=== PATIENT | male | born 1965 | race Caucasian/White ===

== ENCOUNTER → 2018-02-23 | Outpatient (CLI) | payer BC ==
--- NOTE | 2018-02-23 16:50 | US ---
EXAMINATION TYPE: US venous doppler duplex LE RT DATE OF EXAM: 02/23/2018 4:38 PM COMPARISON: NONE CLINICAL HISTORY: R leg swelling R22.41. Right leg swelling x 9 days, fever SIDE PERFORMED: Right TECHNIQUE: The lower extremity deep venous system is examined utilizing real time linear array sonog surjit with graded compression, doppler sonography and color-flow sonography. VESSELS IMAGED: Common Femoral Vein Deep Femoral Vein Greater Saphenous Vein * Femoral Vein Popliteal Vein Small Saphenous Vein * Proximal Calf Veins (* superficial vessels) Right Leg: Is positive for nonoccluding DVT at Distal CFV and is positive for occluding DVT at Right Femoral Vein, Popliteal Vein. and upper and mid calf veins; is positive for Superficial Vein Thrombo sis in upper Small Saphenous Vein IMPRESSION: There is evidence of acute and chronic deep venous thrombosis in the right leg. There is also superficial vein thrombosis in the short saphenous vein.
== END | disposition home or self-care (01) ==
LOC: RADUSWWP 15:42
PROVIDERS: ATTEND Family Medicine
DX: I82.401 Acute embolism and thrombosis of unspecified deep veins of right lower extremity (principal); I82.91 Chronic embolism and thrombosis of unspecified vein; I82.811 Embolism and thrombosis of superficial veins of right lower extremity

== ENCOUNTER → 2018-02-27 | Outpatient (CLI) | payer BC ==
[2018-02-27 12:45] LABS: HCT 41.7 % (39.0-53.0); HGB 13.5 gm/dL (13.0-17.5); MCH 27.7 pg (25.0-35.0); MCHC 32.2 g/dL (31.0-37.0); Mean Platelet Volume 6.9; Platelet Count 333 k/uL (150-450); RBC 4.85 m/uL (4.30-5.90); RDW 12.8 % (11.5-15.5); WBC 7.1 k/uL (3.8-10.6)
[2018-02-27 17:26] LABS: Albumin 4.6 g/dL (3.80-4.90); Albumin/Globulin Ratio 2.3 (1.20-2.10); Anion Gap 7.6 mmol/L (4.00-12.00); Calcium 9.5 mg/dL (8.7-10.3); Carbon Dioxide 28.4 mmol/L (21.6-31.8); Potassium 4.2 mmol/L (3.5-5.5); Total Bilirubin 0.3 mg/dL (0.3-1.2); Total Protein 6.6 g/dL (6.2-8.2)
[2018-02-27 17:32] LABS: Folate, Serum 5.8 ng/mL
[2018-02-27 18:23] LABS: Cardiolipin Ab IgG Interp NEGATIVE (NEGATIVE); Cardiolipin Ab IgM Interp NEGATIVE (NEGATIVE); Cardiolipin IgA Antibody <0.5 U/mL; Cardiolipin IgM Antibody 0.2 U/mL
[2018-02-27 19:41] LABS: Hemoglobin A1C 6.4 % (4.0-6.0)
[2018-03-03 11:03] LABS: Anti-Thrombin III Activity 134 % (79-109); Protein C (Activity) 77 % (71-138)
== END | disposition home or self-care (01) ==
LOC: LABWHC1 11:46
PROVIDERS: ATTEND Family Medicine
DX: C61 Malignant neoplasm of prostate (principal); I82.409 Acute embolism and thrombosis of unspecified deep veins of unspecified lower extremity; I10 Essential (primary) hypertension; E11.9 Type 2 diabetes mellitus without complications
CPT/HCPCS: 36415; 80053; 80061; 82607; 82746; 83036; 83090; 84153; 84443; 85027; 85300; 85303; 85306; 86147

== ENCOUNTER → 2018-07-09 | Outpatient (CLI) | payer BC ==
--- NOTE | 2018-07-09 15:56 | CT ---
EXAMINATION TYPE: CT abdomen pelvis wo con DATE OF EXAM: 07/09/2018 COMPARISON: None HISTORY: 53-year-old male Hematuria and kidney stones. CT DLP: 950.3 mGycm. Automated exposure control for dose reduction was used. TECHNIQUE: Contiguous axial scanning of the abdomen and pelvis without IV contrast. Coronal and sagit satnam reconstructions performed. FINDINGS: Heart normal size without pericardial effusion. Lung bases clear without pleural effusion. Liver upper limits of normal in size at 17.4 cm with diffuse low-attenuation. Noncontrast appearance of the gallbladder, adrenal glands, spleen, and pancreas show no gross anomaly . 3.4 cm probable cyst lateral right kidney. A couple scattered subcentimeter hypodensities in both kid neys inadequately characterize, probable cysts. There is a 1.5 cm probable lateral left renal cyst. No renal calculi or hydronephrosis. No dilated small bowel, free fluid, or free air. No mesenteric or retroperitoneal lymphadenopathy. Scattered mild stool. Occasional diverticular change in the lower descending and proximal sigmoid col on. No pericolic inflammatory change. Mild circumferential bladder wall thickening may relate to incomplete distention. Prostate gland kevan ures 4.6 cm wide. Patulous left inguinal canal. No abnormal fluid collection in the pelvis or pelvic lymphadenopathy. Bones: Mild degenerative changes at the hips. Osteitis pubis. Mild degenerative change at the SI join ts. Facet arthropathy mid to lower lumbar spine. IMPRESSION: 1. No renal calculi or hydronephrosis seen. 2. Bilateral renal lesions, the largest measuring 3.4 cm on the right and 1.5 cm on the left almost certainly represent cysts. A couple additional scattered subcentimeter hypodensities are inadequately characterized but also likely represent cysts. 3. Borderline hepatomegaly (17.4 cm) with at least moderate hepatic steatosis. 4. Mild colonic diverticulosis lower descending/proximal sigmoid colon. 5. Circumferential bladder wall thickening may relate to incomplete distention, chronic bladder wall hypertrophy, or cystitis.
== END | disposition home or self-care (01) ==
LOC: RADCTMAIN 13:15
PROVIDERS: ATTEND Urology
DX: N28.89 Other specified disorders of kidney and ureter (principal); K76.0 Fatty (change of) liver, not elsewhere classified; K57.30 Diverticulosis of large intestine without perforation or abscess without bleeding; N32.89 Other specified disorders of bladder; R31.9 Hematuria, unspecified
CPT/HCPCS: 74176

== ENCOUNTER → 2019-02-26 | Outpatient (CLI) | payer BC ==
--- NOTE | 2019-02-26 14:37 | US ---
EXAMINATION TYPE: US venous doppler duplex LE DATE OF EXAM: 02/26/2019 2:20 PM COMPARISON: US right leg only 02/23/2018 CLINICAL HISTORY: Pain angelita legs M79.662, M79.661, R06.02. Swelling bilateral legs, previous DVT right leg, pt currently on blood thinners SIDE PERFORMED: Bilateral TECHNIQUE: The lower extremity deep venous system is examined utilizing real time linear array sonog surjit with graded compression, doppler sonography and color-flow sonography. VESSELS IMAGED: External Iliac Vein (EIV) Common Femoral Vein Deep Femoral Vein Greater Saphenous Vein * Femoral Vein Popliteal Vein Small Saphenous Vein * Proximal Calf Veins (* superficial vessels) Right Leg: Negative for acute DVT, chronic appearing thrombus beginning at proximal femoral vein, du plicate mid femoral vein, partial blood flow and compression beginning at mid femoral vein to distal popliteal vein Left Leg: Negative for DVT IMPRESSION: Findings suggest sequela from prior DVT on the right. No definite acute deep venous thr ombosis identified.
--- NOTE | 2019-02-26 15:01 | CT ---
EXAMINATION TYPE: CT angio chest DATE OF EXAM: 02/26/2019 COMPARISON: NONE HISTORY: SOB, bilateral leg pain, hx of DVT CT DLP: 465.2 mGycm. Automated Exposure Control for Dose Reduction was Utilized. CONTRAST: CTA scan of the thorax is performed with IV Contrast, patient injected with 66cc mL of Isovue 370, pu lmonary embolism protocol. MIP Images are created on CT scanner and reviewed. FINDINGS: LUNGS: Minimal bibasilar subsegmental dependent atelectasis. The lungs are grossly clear, there is no concerning parenchymal mass or nodule identified. There is no pleural effusion or pneumothorax see n. The tracheobronchial tree is patent. Mild right hemidiaphragm elevation is likely on the basis of hepatomegaly. MEDIASTINUM: There is suboptimal enhancement of the pulmonary artery and its branches, there is no ce ntral pulmonary embolus. Segmental and subsegmental branches are nondiagnostic. There are no greater than 1 cm hilar or mediastinal lymph nodes. No cardiomegaly or pericardial effusion is seen. Very f ew subtle few coronary calcifications. OTHER: Partially visualized right renal cystic lesion measures 2.5 cm. Hepatic steatosis is seen limi ting evaluation for hepatic masses. Mild multilevel degenerative disc disease of the spine. IMPRESSION: 1. No evidence of central pulmonary embolus. Suboptimal bolus timing and therefore evaluation of the segmental and subsegmental pulmonary arteries are nondiagnostic. 2. No focal consolidation, pleural effusion or pneumothorax and the lungs.
== END ==
LOC: RADCTMAIN 13:29
PROVIDERS: ATTEND Family Medicine
DX: M79.662 Pain in left lower leg (principal); M79.661 Pain in right lower leg; R06.02 Shortness of breath; Z01.812 Encounter for preprocedural laboratory examination; Z86.718 Personal history of other venous thrombosis and embolism
CPT/HCPCS: 82565; 84520; 93970; 71275; 36415; Q9967

== ENCOUNTER 2024-02-06 16:30 | Emergency (ER) | payer BC ==
--- NOTE | 2024-02-06 17:12 | ED ---
Abdominal Pain HPI - General Chief Complaint: Abdominal Pain Stated Complaint: back pain, nausea Time Seen by Provider: 02/06/24 16:50 Source: patient (\), RN notes reviewed Mode of arrival: ambulatory Limitations: no limitations - History of Present Illness Initial Comments: 58-year-old male with history of kidney stones presenting to the ER with chief complaint of left flank pain x 1 day. States around 4 AM this morning he woke up with a pain in his left flank. Describes the pain as sharp and intermittent. Pain does not radiate. Admits associated nausea. Also reports an episode of diarrhea today. Denies abdominal pain, fevers, chills, urinary symptoms, hematuria. Denies trauma or injury. He does have a history of DVT but has not taken his Eliquis in several months due to the cost. Other past medical history includes hypertension and prediabetes. - Related Data Previous Rx's Medication Instructions Recorded Cephalexin [Keflex] 500 mg PO Q12HR 7 Days #14 cap 02/06/24 Ketorolac [Toradol] 10 mg PO Q8HR #15 tab 02/06/24 Tamsulosin [Flomax] 0.4 mg PO DAILY #7 cap 02/06/24 Allergies Allergy/AdvReac Type Severity Reaction Status Date / Time lactose AdvReac Diarrhea Verified 02/06/24 16:37 onion AdvReac Diarrhea Verified 02/06/24 16:37 Review of Systems ROS Statement: Those systems with pertinent positive or pertinent negative responses have been documented in the HPI. ROS Other: All systems not noted in ROS Statement are negative. Past Medical History Past Medical History: Deep Vein Thrombosis (DVT) Additional Past Medical History / Comment(s): kidney stones, left leg DVT on Eliquis, History of Any Multi-Drug Resistant Organisms: None Reported Past Surgical History: Orthopedic Surgery Additional Past Surgical History / Comment(s): left shoulder surgery, Past Psychological History: No Psychological Hx Reported Smoking Status: Former smoker Past Alcohol Use History: Rare Past Drug Use History: None Reported General Exam Limitations: no limitations General appearance: alert, in no apparent distress Head exam: Present: atraumatic, normocephalic, normal inspection Eye exam: Present: normal appearance, PERRL, EOMI. Absent: scleral icterus, conjunctival injection, periorbital swelling ENT exam: Present: normal exam, mucous membranes moist Respiratory exam: Present: normal lung sounds bilaterally. Absent: respiratory distress, wheezes, rales, rhonchi, stridor Cardiovascular Exam: Present: regular rate, normal rhythm, normal heart sounds. Absent: systolic murmur, diastolic murmur, rubs, gallop, clicks GI/Abdominal exam: Present: soft, normal bowel sounds. Absent: distended, tenderness, guarding, rebound, rigid Back exam: Absent: CVA tenderness (R), CVA tenderness (L) Neurological exam: Present: alert, oriented X3 Psychiatric exam: Present: normal affect, normal mood Skin exam: Present: warm, dry, intact, normal color. Absent: rash Course Vital Signs 02/06/24 02/06/24 16:32 20:18 Temperature 97.7 F 97.9 F Pulse Rate 80 71 Respiratory 18 17 Rate Blood Pressure 137/91 126/79 O2 Sat by Pulse 98 97 Oximetry Medical Decision Making - Medical Decision Making Was pt. sent in by a medical professional or institution (, PA, [facility] [employer], urgent care, hospital, or [facility]...) When possible be specific @ -No Did you speak to anyone other than the patient for history (EMS, parent, family, police, friend...)? What history was obtained from this source @ -No Did you review nursing and triage notes (agree or disagree)? Why? @ -I reviewed and agree with nursing and triage notes Were old charts reviewed (outside hosp., previous admission, EMS record, old EKG, old radiological studies, urgent care reports/EKG's, [facility] records)? Report findings @ -No old charts were reviewed Differential Diagnosis (chest pain, altered mental status, abdominal pain women, abdominal pain men, vaginal bleeding, weakness, fever, dyspnea, syncope, headache, dizziness, GI bleed, back pain, seizure, CVA, palpatations, mental health, musculoskeletal)? @ -Differential Abdominal Pain Men: Appendicitis, cholecystitis, diverticulosis, ischemic bowel, pancreatitis, hepatitis, UTI, gastroenteritis, AAA, incarcerated hernia, bowel obstruction, constipation, inflammatory bowel, hepatitis, peptic ulcer disease, splenic infarction, perforated viscus, testicular torsion, this is not meant to be an all-inclusive list EKG interpreted by me (3pts min.). @ -None X-rays interpreted by me (1pt min.). @ -None done CT interpreted by me (1pt min.). @ -CT abdomen pelvis revealed mild left hydronephrosis with obstructing 5 mm calculus at ureterovesicular junction. Fat stranding changes around kidney U/S interpreted by me (1pt. min.). @ -None done What testing was considered but not performed or refused? (CT, X-rays, U/S, labs)? Why? @ -None What meds were considered but not given or refused? Why? @ -None Did you discuss the management of the patient with other professionals (saadia stewart i.e. , PA, [employer], lab, RT, psych nurse, social secretary, action installer, teacher, commissary officer, case hardener)? Give summary @ -I spoke with Dr. Arreola who recommends discharge with antibiotics and close outpatient follow up Was smoking cessation discussed for >3mins.? @ -No Was critical care preformed (if so, how long)? @ -No Were there social determinants of health that impacted care today? How? ( Homelessness, low income, unemployed, alcoholism, drug addiction, transportation, low edu. Level, literacy, decrease access to med. care, skilled nursing, rehab)? @ -No Was there de-escalation of care discussed even if they declined (Discuss DNR or withdrawal of care, Hospice)? DNR status @ -No What co-morbidities impacted this encounter? (DM, HTN, Smoking, COPD, CAD, Cancer, CVA, ARF, Chemo, Hep., AIDS, mental health diagnosis, sleep apnea, morbid obesity)? @ -None Was patient admitted / discharged? Hospital course, mention meds given and route, prescriptions, significant lab abnormalities, going to OR and other pertinent info. @ -Discharged. This is a 58-year-old male presenting to the ER with left flank pain x 1 day. Denies fevers, vomiting. Vital signs are within acceptable limits. Patient is afebrile, nontachycardic. Abdomen is soft and nontender. No CVA tenderness. Patient was provided with IV fluids, analgesics. Laboratory studies including CBC, CMP, lactic acid remarkable for white blood cell count of 16 and lactic acid 2.4. CT abdomen pelvis reveals left hydronephrosis with obstructing 5 mm stone at ureterovesicular junction with fat stranding changes around kidney. Upon reevaluation, patient states symptoms have improved. I spoke with Dr. Arreola who recommends discharge with antibiotics and close outpatient follow-up. Patient is agreeable to this plan. Advised close follow- up with urology on Friday. Patient was given 1 g Rocephin and discharged with Keflex, Toradol, Flomax, and Zofran. Case was discussed with my ED attending Dr. Oconnor. Undiagnosed new problem with uncertain prognosis? @ -No Drug Therapy requiring intensive monitoring for toxicity (Heparin, Nitro, Insulin, Cardizem)? @ -No Were any procedures done? @ -No Diagnosis/symptom? @ -Left nephrolithiasis Acute, or Chronic, or Acute on Chronic? @ -Acute Uncomplicated (without systemic symptoms) or Complicated (systemic symptoms)? @ -Uncomplicated Side effects of treatment? @ -No Exacerbation, Progression, or Severe Exacerbation? @ -No Poses a threat to life or bodily function? How? (Chest pain, [place], [place], pneumonia, PE, COPD, DKA, ARF, appy, cholecystitis, CVA, Diverticulitis, Homicidal, Suici eli, threat to staff... and all critical care pts) @ -Not at this time - Lab Data Result diagrams: 02/06/24 17:09 02/06/24 17:09 Lab Results 02/06/24 02/06/24 02/06/24 Range/Units 17:09 17:09 17:09 WBC 16.6 H (3.8-10.6) k/uL RBC 5.28 (4.30-5.90) m/uL Hgb 14.8 (13.0-17.5) gm/dL Hct 45.9 (39.0-53.0) % MCV 86.9 (80.0-100.0) fL MCH 28.1 (25.0-35.0) pg MCHC 32.3 (31.0-37.0) g/dL RDW 13.2 (11.5-15.5) % Plt Count 196 (150-450) k/uL MPV 8.0 Neutrophils % 92 % Lymphocytes % 4 % Monocytes % 3 % Eosinophils % 0 % Basophils % 0 % Neutrophils # 15.3 H (1.3-7.7) k/uL Lymphocytes # 0.7 L (1.0-4.8) k/uL Monocytes # 0.6 (0-1.0) k/uL Eosinophils # 0.0 (0-0.7) k/uL Basophils # 0.0 (0-0.2) k/uL Sodium 139 (137-145) mmol/L Potassium 4.7 (3.5-5.1) mmol/L Chloride 106 (98-107) mmol/L Carbon Dioxide 22 (22-30) mmol/L Anion Gap 11 mmol/L BUN 25 H (9-20) mg/dL Creatinine 1.76 H (0.66-1.25) mg/dL Est GFR (CKD-EPI)AfAm 48 (>60 ml/min/1.73 sqM) Est GFR (CKD-EPI)NonAf 42 (>60 ml/min/1.73 sqM) Glucose 196 H (74-99) mg/dL Lactic Ac Sepsis Rflx Plasma Lactic Acid Cy 2.4 H* (0.7-2.0) mmol/L Calcium 9.2 (8.4-10.2) mg/dL Total Bilirubin 0.7 (0.2-1.3) mg/dL AST 19 (17-59) U/L ALT 19 (4-49) U/L Alkaline Phosphatase 61 (38-126) U/L Total Protein 7.3 (6.3-8.2) g/dL Albumin 4.6 (3.5-5.0) g/dL Urine Color Urine Appearance (Clear) Urine pH (5.0-8.0) Ur Specific [place] (1.001-1.035) Urine Protein (Negative) Urine Glucose (UA) (Negative) Urine Ketones (Negative) Urine Blood (Negative) Urine Nitrite (Negative) Urine Bilirubin (Negative) Urine Urobilinogen (<2.0) mg/dL Ur Leukocyte Esterase (Negative) Urine RBC (0-5) /hpf Urine WBC (0-5) /hpf Calcium Oxalate Crystal (None) /hpf Urine Mucus (None) /hpf 02/06/24 02/06/24 Range/Units 18:38 19:12 WBC (3.8-10.6) k/uL RBC (4.30-5.90) m/uL Hgb (13.0-17.5) gm/dL Hct (39.0-53.0) % MCV (80.0-100.0) fL MCH (25.0-35.0) pg MCHC (31.0-37.0) g/dL RDW (11.5-15.5) % Plt Count (150-450) k/uL MPV Neutrophils % % Lymphocytes % % Monocytes % % Eosinophils % % Basophils % % Neutrophils # (1.3-7.7) k/uL Lymphocytes # (1.0-4.8) k/uL Monocytes # (0-1.0) k/uL Eosinophils # (0-0.7) k/uL Basophils # (0-0.2) k/uL Sodium (137-145) mmol/L Potassium (3.5-5.1) mmol/L Chloride (98-107) mmol/L Carbon Dioxide (22-30) mmol/L Anion Gap mmol/L BUN (9-20) mg/dL Creatinine (0.66-1.25) mg/dL Est GFR (CKD-EPI)AfAm (>60 ml/min/1.73 sqM) Est GFR (CKD-EPI)NonAf (>60 ml/min/1.73 sqM) Glucose (74-99) mg/dL Lactic Ac Sepsis Rflx Y Plasma Lactic Acid Cy (0.7-2.0) mmol/L Calcium (8.4-10.2) mg/dL Total Bilirubin (0.2-1.3) mg/dL AST (17-59) U/L ALT (4-49) U/L Alkaline Phosphatase (38-126) U/L Total Protein (6.3-8.2) g/dL Albumin (3.5-5.0) g/dL Urine Color Light Yellow Urine Appearance Cloudy (Clear) Urine pH 5.5 (5.0-8.0) Ur Specific [place] 1.023 (1.001-1.035) Urine Protein Negative (Negative) Urine Glucose (UA) 4+ H (Negative) Urine Ketones Negative (Negative) Urine Blood Moderate H (Negative) Urine Nitrite Negative (Negative) Urine Bilirubin Negative (Negative) Urine Urobilinogen <2.0 (<2.0) mg/dL Ur Leukocyte Esterase Negative (Negative) Urine RBC 20 H (0-5) /hpf Urine WBC 4 (0-5) /hpf Calcium Oxalate Crystal Occasional H (None) /hpf Urine Mucus Occasional H (None) /hpf Disposition Clinical Impression: Left nephrolithiasis Disposition: HOME SELF-CARE Condition: Stable Instructions (If sedation given, give patient instructions): Kidney Stones (ED) Additional Instructions: Follow-up with Dr. Arreola on Friday. Take Keflex twice daily for 7 days. Take Toradol as needed for pain, and Zofran as needed for nausea. Please return to the Emergency Department if symptoms worsen or any other concerns. Prescriptions: Tamsulosin [Flomax] 0.4 mg PO DAILY #7 cap Cephalexin [Keflex] 500 mg PO Q12HR 7 Days #14 cap Ketorolac [Toradol] 10 mg PO Q8HR #15 tab Is patient prescribed a controlled substance at d/c from ED?: No Referrals: Jewell Nassar MD [Primary Care Provider] - 1-2 days Benny Arreola MD [STAFF PHYSICIAN] - 1-2 days Time of Disposition: 20:05
[2024-02-06] MEDS: SODIUM CHLORIDE 0.9% 1,000 ML IV STA (17:42)
[2024-02-06] MEDS: KETOROLAC 15 MG/ML 1 ML VIAL IVP STA ×2 (17:45→20:11)
[2024-02-06 18:16] LABS: Basophils % (A) 0 %; Eosinophils % (A) 0 %; HCT 45.9 % (39.0-53.0); HGB 14.8 gm/dL (13.0-17.5); Lymphocytes # (A) 0.7 k/uL (1.0-4.8); Lymphocytes % (A) 4 %; MCH 28.1 pg (25.0-35.0); MCHC 32.3 g/dL (31.0-37.0); MCV 86.9 fL (80.0-100.0); Monocytes # (A) 0.6 k/uL (0-1.0); Monocytes % (A) 3 %; Neutrophils # (A) 15.3 k/uL (1.3-7.7); Neutrophils % (A) 92 %; Platelet Count 196 k/uL (150-450); RBC 5.28 m/uL (4.30-5.90); RDW 13.2 % (11.5-15.5); WBC 16.6 k/uL (3.8-10.6)
[2024-02-06 18:36] LABS: ALT 19 U/L (4-49); AST 19 U/L (17-59); African American GFR (CKD) 48 (>60 ml/min/1.73 sqM); Albumin 4.6 g/dL (3.5-5.0); Alkaline Phosphatase 61 U/L (38-126); Anion Gap 11 mmol/L; Blood Urea Nitrogen 25 mg/dL (9-20); Calcium 9.2 mg/dL (8.4-10.2); Carbon Dioxide 22 mmol/L (22-30); Chloride 106 mmol/L (98-107); Glucose 196 mg/dL (74-99); Non-African American GFR(CKD) 42 (>60 ml/min/1.73 sqM); Potassium 4.7 mmol/L (3.5-5.1); Sodium 139 mmol/L (137-145); Total Bilirubin 0.7 mg/dL (0.2-1.3); Total Protein 7.3 g/dL (6.3-8.2)
--- NOTE | 2024-02-06 19:07 | CT ---
EXAMINATION TYPE: CT abdomen pelvis wo con DATE OF EXAM: 02/06/2024 6:42 PM COMPARISON: 07/09/2018 CLINICAL INDICATION: Male, 58 years old with history of right flank pain, kidney stone suspected; TECHNIQUE: Axial CT abdomen pelvis wo con;Sagittal and coronal reformats were created on a separate workstation. Contrast used: mL of , (none if empty) Oral contrast used: (none if empty) CT DLP: mGycm, Automated exposure control for dose reduction was used. FINDINGS: LOWER CHEST: Unremarkable ABDOMEN LIVER: Unremarkable GALLBLADDER AND BILE DUCTS: Unremarkable. PANCREAS: Unremarkable. SPLEEN: Unremarkable. ADRENAL GLANDS: Unremarkable. KIDNEYS AND URETERS: Mild left hydronephrosis with obstructing 5 mm calculus at the ureterovesicular junction. Fat stranding changes around the left kidney. Scattered bilateral renal probable cyst. PELVIS BLADDER: No evidence for wall thickening or mass given limitations of exam. REPRODUCTIVE: Prostate is enlarged in size measuring 4.9 cm in transverse dimension. ABDOMEN & PELVIS STOMACH AND BOWEL: No evidence of bowel obstruction. Scattered colonic diverticula are present. The a ppendix is normal. PERITONEUM/RETROPERITONEUM: No evidence of pneumoperitoneum or free fluid. VASCULATURE: No evidence of aortic aneurysm. MUSCULOSKELETAL: No acute osseous abnormalities LYMPH NODES: No gross evidence for lymphadenopathy. SOFT TISSUE/ABDOMINAL WALL: Bilateral fat-containing inguinal hernias. IMPRESSION: 1. Mild left hydronephrosis with obstructing 5 mm calculus at the ureterovesicular junction. Fat str anding changes around the left kidney. Correlate for ascending infection. No right renal calculus or obstructive uropathy on the right. 2. Colonic diverticulosis. 3. Prostatomegaly, correlate with serum PSA. [facility], , 02/06/2024 7:05 PM
[2024-02-06 19:19] LABS: Appearance,Urine Cloudy (Clear); Bilirubin,Urine Negative (Negative); Blood,Urine Moderate (Negative); Calcium Oxalate Crystals,Urine Occasional /hpf; Color,Urine Light Yellow; Glucose,Urine (UA) 4+ (Negative); Ketones,Urine Negative (Negative); Leukocyte Esterase,Urine Negative (Negative); Mucus,Urine Occasional /hpf; Nitrite,Urine Negative (Negative); PH, Urine 5.5 (5.0-8.0); Protein,Urine Negative (Negative); RBC,Urine 20 /hpf (0-5); Specific Gravity,Urine 1.023 (1.001-1.035); Urobilinogen,Urine <2.0 mg/dL (<2.0); WBC,Urine 4 /hpf (0-5)
[2024-02-06] MEDS: cefTRIAXone IN SWFI 1,000 MG/10 ML SYRINGE IVP STA (20:12)
[2024-02-06] MEDS: ONDANSETRON 4 MG ODT STARTER PACK 2 TAB BTL PO STA (20:12)
[2024-02-06 20:23] VITALS: BP 126/79; PULSE 71; RESP 17; TEMP 97.9
== END 2024-02-06 20:28 | disposition home or self-care (01) ==
LOC: EC 16:30
DX: K57.30 Diverticulosis of large intestine without perforation or abscess without bleeding (principal); N13.2 Hydronephrosis with renal and ureteral calculous obstruction; Z87.891 Personal history of nicotine dependence; Z91.018 Allergy to other foods
CPT/HCPCS: 36415; 80053; 83605; 85025; 81001; 74176; 99284; 96374; 96375; 96376; 96361 ×2; J0696; J1885; S0119

== ENCOUNTER → 2024-02-18 | Outpatient (CLI) | payer BC ==
--- NOTE | 2024-02-18 12:29 | XR ---
EXAMINATION TYPE: XR KUB DATE OF EXAM: 02/18/2024 12:15 PM COMPARISON: None. CLINICAL INDICATION: Male, 58 years old with history of N20.1 CALCULUS OF URETER; TECHNIQUE: One radiographic view of the abdomen was obtained. FINDINGS: The bowel gas pattern is nonspecific without dilated loops of small or large bowel. . Fecal material and gas are demonstrated throughout the colon and rectum. There is no evidence for organomegaly or pneumoperitoneum. The osseous structures are intact. No ab normal calcifications are present. IMPRESSION: Nonspecific bowel gas pattern without radiographic evidence for acute process. [facility], , 02/18/2024 12:27 PM
== END | disposition home or self-care (01) ==
LOC: RADXRMAIN 11:51
PROVIDERS: ATTEND Urology
DX: N20.1 Calculus of ureter (principal)
CPT/HCPCS: 74018

== ENCOUNTER → 2024-03-09 | Outpatient (CLI) | payer BC ==
--- NOTE | 2024-03-09 09:18 | XR ---
EXAMINATION TYPE: XR KUB DATE OF EXAM: 03/09/2024 8:29 AM COMPARISON: CT 1 02/06/2024 CLINICAL INDICATION: Male, 58 years old with history of N20.0 CALCULUS OF KIDNEY; [facility] TECHNIQUE: One radiographic view of the abdomen was obtained. FINDINGS: There is a small stool burden, otherwise, the bowel gas pattern is nonspecific without dila jaydon loops of small or large bowel. . Fecal material and gas are demonstrated throughout the colon and rectum. There is no evidence for organomegaly or pneumoperitoneum. The osseous structures are intact. No ab normal calcifications are present. Calculus in the urinary bladder near the left ureterovesicular angelina ction not definitively visualized. IMPRESSION: Calculus in the bladder not definitively visualized. Nonspecific bowel gas pattern without radiographic evidence for acute process. [facility], , 03/09/2024 9:16 AM
== END | disposition home or self-care (01) ==
LOC: RADXRMAIN 08:11
PROVIDERS: ATTEND Urology
DX: N20.0 Calculus of kidney (principal); N21.0 Calculus in bladder
CPT/HCPCS: 74018

== ENCOUNTER → 2024-10-19 | Outpatient (CLI) | payer BC ==
--- NOTE | 2024-10-19 14:37 | US ---
EXAMINATION TYPE: US scrotum with doppler. DATE OF EXAM: 10/19/2024 COMPARISON: NONE CLINICAL INDICATION: Male, 59 years old with history of N50.82 SCROTAL PAIN; Bilateral groin pain sin ce trip to [place] about one month ago. TECHNIQUE: Grayscale, color Doppler and spectral Doppler imaging of the scrotum. FINDINGS: EXAM MEASUREMENTS: TESTICLES: Right Testicle: 3.8 x 1.9 x 3.5 cm Left Testicle: 4.0 x 2.2 x 3.6 cm EPIDIDYMIS HEAD: Right Epididymis: 0.8 x 1.3 x 1.5 cm Left Epididymis: 1.5 x 0.4 x 1.8 cm Doppler performed to assess for testicular vascularity; good bilateral color flow and spectral wavefo tay are seen. There is no evidence of testicular torsion. Presence of hydroceles: No Presence of varicoceles: Yes Cyst seen adjacent to left epididymal head = 1.8 x 1.0 x 2.3 cm IMPRESSION: 1. No evidence for acute process. 2. Left epididymal cyst 3. No evidence for intratesticular mass. 4. Appropriate arterial and venous spectral waveforms to the testes. 5. Left varicocele [facility], , 10/19/2024 2:35 PM
== END | disposition home or self-care (01) ==
LOC: RADUSWWP 14:04
PROVIDERS: ATTEND Emergency Medicine
DX: N50.3 Cyst of epididymis (principal); I86.1 Scrotal varices
CPT/HCPCS: 76870; 93975

== ENCOUNTER → 2024-10-21 | Outpatient (CLI) | payer BC ==
[2024-10-21 15:13] LABS: Basophils # (A) 0.08 X 10*3/uL (0.00-0.10); Basophils % (A) 0.9 %; Eosinophils # (A) 0.27 X 10*3/uL (0.04-0.35); Eosinophils % (A) 3.0 %; HCT 46.7 % (39.6-50.0); HGB 14.8 g/dL (13.0-17.0); Immature Grans, Automated 0.40 %; Lymphocytes # (A) 1.85 X 10*3/uL (0.90-5.00); Lymphocytes % (A) 20.7 %; MCH 27.7 pg (27.0-32.0); MCHC 31.7 g/dL (32.0-37.0); MCV 87.3 FL (80.0-97.0); Monocytes # (A) 0.62 X 10*3/uL (0.20-1.00); Monocytes % (A) 6.9 %; NRBC Per 100 WBC 0 X 10*3/uL (0.00-0.01); Neutrophils # (A) 6.07 X 10*3/uL (1.80-7.70); Neutrophils % (A) 68.1 %; Platelet Count 234 X 10*3/uL (140-440); RBC 5.35 X 10*6/uL (4.40-5.60); RDW 12.6 % (11.5-14.5); WBC 8.93 X 10*3/uL (4.50-10.00)
[2024-10-21 15:37] LABS: ALT 25 U/L (10-49); AST 20 U/L (14-35); Albumin 4.6 g/dL (3.8-4.9); Albumin/Globulin Ratio 2.00 Ratio (1.60-3.17); Alkaline Phosphatase 76 U/L (41-126); Anion Gap 11.20 mmol/L (4.00-12.00); BUN/Creat Ratio 11.55 Ratio (12.00-20.00); Blood Urea Nitrogen 12.7 mg/dL (9.0-27.0); Calcium 9.8 mg/dL (8.7-10.3); Carbon Dioxide 25.8 mmol/L (21.6-31.8); Chloride 103 mmol/L (96-109); Cholesterol 261.00 mg/dL (0.00-200.00); Globulin 2.3 g/dL (1.6-3.3); Glucose 138 mg/dL (70-110); HDL Cholesterol 40.20 mg/dL (40.00-60.00); LDL Cholesterol,Calculated 159.8 mg/dL (0.0-131.0); Potassium 4.5 mmol/L (3.5-5.5); Sodium 140 mmol/L (135-145); Total Protein 6.9 g/dL (6.2-8.2); Triglycerides 305.00 mg/dL (0.00-149.00); VLDL Calculation 61.00 mg/dL (5.00-40.00)
== END | disposition home or self-care (01) ==
LOC: LABWHC1 09:12
PROVIDERS: ATTEND Emergency Medicine
DX: Z12.5 Encounter for screening for malignant neoplasm of prostate (principal); Z13.220 Encounter for screening for lipoid disorders; Z13.1 Encounter for screening for diabetes mellitus; E55.9 Vitamin D deficiency, unspecified; R53.83 Other fatigue
CPT/HCPCS: 36415; 80053; 80061; 82306; 83036; 84153; 84443; 85025